=== PATIENT | male | born 1960 ===

== ENCOUNTER 2023-05-05 14:56 | Outpatient (CLI) | payer OTHER | END 2023-05-05 15:39 | disposition home or self-care (01) | LOC: LAB 14:56 | PROVIDERS: ATTEND Radiology Diagnostic Radiology | DX: C32.1 Malignant neoplasm of supraglottis (principal) ==

== ENCOUNTER 2023-05-11 09:20 | Outpatient (CLI) | payer OTHER | END 2023-05-11 09:34 | disposition home or self-care (01) | LOC: MRI 09:20 | PROVIDERS: ATTEND Otolaryngology | DX: C32.1 Malignant neoplasm of supraglottis (principal) | CPT/HCPCS: 70543 ==